=== PATIENT | female | born 1955 | race Caucasian/White ===

== ENCOUNTER 2018-09-17 06:58 | Day surgery (SDC) | payer OTHER ==
[2018-09-17] MEDS: Lactated Ringers 1,000 ML IV SCH (07:45)
[2018-09-17] MEDS ORDERED: Ondansetron 4 MG/2 ML SDV ONE (09:03)
[2018-09-17] MEDS ORDERED: Propofol 200 MG/20 ML SDV ONE (09:03)
[2018-09-17 10:06] VITALS: BP 117/67
--- NOTE | 2018-09-17 11:06 | OR ---
DATE OF PROCEDURE: 09/17/2018 PREOPERATIVE DIAGNOSIS: Colon cancer screening. POSTOPERATIVE DIAGNOSIS: Unremarkable colonoscopy. PROCEDURE: Colonoscopy to the cecum. SURGEON: Kashif Vinson MD ANESTHESIA: IV anesthesia with monitored anesthesia care. INDICATION: This 62-year-old white female is referred for a colonoscopy for colon cancer screening. She says her last colonoscopic exam was done 10 years ago in the [facility]. I counseled her for the procedure, including risks and alternatives, and she gave her informed consent to proceed. DESCRIPTION OF PROCEDURE: The patient was placed in the left lateral decubitus position. IV anesthesia was administered by the Anesthesia Service. Time-out was held. A rectal exam was performed, which was unremarkable. The flexible video Olympus colonoscope was introduced through her anus, up her rectum out her colon all the way to the cecum. Once the cecum was reached, the scope was slowly withdrawn, examining the mucosa throughout. No mucosal abnormalities were noted. The scope was retroflexed in the rectum with the distal rectum showing some hemorrhoidal tissue, otherwise unremarkable. The scope was straightened and removed. She tolerated the procedure well. Kashif Vinson MD /[id number]
== END 2018-09-17 10:09 | disposition home or self-care (01) ==
LOC: JP.SDS 06:58
PROVIDERS: ATTEND Surgery
DX: Z12.11 Encounter for screening for malignant neoplasm of colon (principal); K64.9 Unspecified hemorrhoids; I10 Essential (primary) hypertension; E78.5 Hyperlipidemia, unspecified; E73.9 Lactose intolerance, unspecified; J45.909 Unspecified asthma, uncomplicated; R73.03 Prediabetes; Z90.13 Acquired absence of bilateral breasts and nipples; Z85.3 Personal history of malignant neoplasm of breast; Z92.21 Personal history of antineoplastic chemotherapy; Z79.82 Long term (current) use of aspirin; Z79.899 Other long term (current) drug therapy
CPT/HCPCS: J2405; J2704; J7120